=== PATIENT | female | born 1950 | race Caucasian/White ===

== ENCOUNTER 2023-06-18 06:11 | Day surgery (SDC) | payer OTHER, SELFPAY ==
--- NOTE | 2023-05-15 10:20 | CM ---
Patient is scheduled for an elective R TSA on 06/18/23- she is a same day patient. Spoke with patient prior to surgery. Introduced role of Orthopedic Navigator. Patient reports that she lives with her and 94 year old mother in a one story
home. Currently she functions independently. She does not use any DME and has never had VN services. PCP is Dr. Cammie Salazar.
Discussed orthopedic program and post surgical plans. Patient will return home when directed by surgeon. Reviewed MD follow up and transition to outpatient therapy. Patient is in agreement with tentative plan and states that her will be home
with her and can assist if needed.
Patient will complete online education.
Plan: Orthopedic Navigator will be involved in the care of patient after surgery and will reassess discharge needs at that time.
[2023-06-02 13:26] VITALS: BMI 43.8
[2023-06-02 13:47] LABS: Hematocrit 41.2 % (37.0-47.0); Hemoglobin 13.3 g/dL (12.0-16.0); Mean Corp Hgb Conc. 32.3 g/dL (33.0-37.0); Mean Corpuscular Hgb 28.5 pg (27.0-31.0); Mean Corpuscular Volume 88.4 fL (81.0-99.0); Mean Platelet Volume 10.4 fL (7.4-10.4); Platelet Count 247 10^3/uL (130-400); Red Blood Cell Count 4.66 10^6/uL (4.20-5.40); Red Cell Dist. Width 15.4 % (11.5-14.5); White Blood Cell Count 9.2 10^3/uL (4.8-10.8)
[2023-06-02 14:05] LABS: ALT (SGPT) 33 U/L (0-35); AST (SGOT) 41 U/L (14-36); Albumin 4.4 g/dl (3.5-5.0); Alkaline Phosphatase 108 U/L (38-126); Blood Urea Nitrogen 16 mg/dl (7-17); Calcium 9.7 mg/dl (8.4-10.2); Carbon Dioxide 28 mmol/L (22-30); Chloride 105 mmol/L (98-107); Estimated Creatinine Clearance 74 ml/min; Glucose 80 mg/dl (70-99); Potassium 4.6 mmol/L (3.5-5.1); Sodium 136 mmol/L (135-145); Total Bilirubin 0.8 mg/dl (0.2-1.3); eGFR > 60.00
[2023-06-02 14:55] LABS: Glycohemoglobin (HgbA1c) 5.7 % (4.0-5.6)
[2023-06-11 11:00] VITALS: BMI 43.8
[2023-06-18] VITALS (9 sets, daily range): BP systolic 107–132; BP diastolic 55–89
[2023-06-18] MEDS: NORMOSOL-R 1000 IV (09:27)
[2023-06-18] MEDS: CELEBREX 200 MG PO (09:27)
[2023-06-18] MEDS: TYLENOL 1000 MG PO (09:27)
== END 2023-06-18 15:00 | disposition home or self-care (01) ==
LOC: SDS 06:11
PROVIDERS: ATTENDING PHYSICIAN Orthopaedic Surgery Hand Surgery; FAMILY PHYSICIAN Family Medicine; OTHER PHYSICIAN Internal Medicine Cardiovascular Disease
DX: M19.011 Primary osteoarthritis, right shoulder (principal); M75.111 Incomplete rotator cuff tear or rupture of right shoulder, not specified as traumatic; E66.01 Morbid (severe) obesity due to excess calories; Z68.41 Body mass index [BMI] 40.0-44.9, adult; I48.0 Paroxysmal atrial fibrillation; Z79.01 Long term (current) use of anticoagulants
CPT/HCPCS: 23472; 36415; 73020; 80053; 83036; 85027; 87070; C1713; C1776

== ENCOUNTER 2023-10-28 11:28 | Emergency (ER) | payer OTHER, SELFPAY ==
[2023-10-28 11:36] VITALS: BP 156/93
--- NOTE | 2023-10-28 12:51 | ED.GENMED ---
History of Present Illness
General
Chief Complaint: Musculo-Skeletal Complaint
Time Seen by Provider: 10/28/23 12:07
History of Present Illness
History of Present Illness:
73 yo female presents emergency department for evaluation of intermittent right leg pain that comes and goes over the past 7 days. Primarily located in the right popliteal space but does radiate toward the right thigh and right calf. No obvious
provoking or palliating factors. Denies any leg edema. She is on anticoagulants and has been compliant. Denies any low back pain
Past History
Past History
ED Past Medical History: Arrthythmia (afib on Eliquis), CVA (TIA October, April), HTN, Hypercholesterolemia, Hypothyroidism and Other (OA, Cellulitis, obesity, left eustachian tube dysfunction); Negative Asthma or NIDDM
ED Past Surgical History: Gynecological (Uterine biopsy) and Orthopedic (Plates and pins in left knee)
Social History
Tobacco: Non-smoker
Alcohol: Daily (wine or gin with club soda 1 daily)
Drug: None
Personal:
Living: with family
Employment: Employed (Homemaker)
Family History
Family History: Other (Mother with a stroke)
Review of Systems
Review of Systems
Allergies reviewed?: Yes
All Other Systems: ROS reviewed and negative except as documented in HPI and ROS
Phy Exam
Physical Exam
Physical Exam:
GEN: Well appearing, NAD, WDWN
HEENT: Oral mucosa moist, no scleral icterus
Cardiac: Regular rate
Lung: No respiratory distress, no tachypnea
MSK: No gross deformity or injuries. No obvious edema to RLE. DP pulse 2+, normal cap refill. Normal R hip/knee ROM, no pain elicited
Skin: Good color, no pallor or jaundice, no rashes
Neuro: AO x3, moves all extremities freely
Psych: Calm, cooperative
Course
Orders/Labs/Results
Orders:
Orders
10/28/23 12:37
CR Knee- Right 4 Or More View* Urgent
Comment:
Reason For Exam: non traumatic pain
Vital Signs
Initial and Last Documented VS:
Initial Vital Signs
Temp Pulse Resp BP Pulse Ox
97.9 F 68 20 156/93 98
10/28/23 11:36 10/28/23 11:36 10/28/23 11:36 10/28/23 11:36 10/28/23 11:36
Last Documented Vital Signs
Temp Pulse Resp BP Pulse Ox
97.9 F 68 20 156/93 98
10/28/23 11:36 10/28/23 11:36 10/28/23 11:36 10/28/23 11:36 10/28/23 11:36
MDM/Problems Addressed
MDM/Problems Addressed:
Unclear etiology to symptoms, could be knee arthritis or lumbar radiculopathy, doubt DVT given use of OAC. Has Ortho f/u in 2 days
*Critical Care Note
Total Time (30-74mins, 75-104mins- exclusive of procedures): Not Applicable
ED Attending Note
-
Portions of this chart may have been created with voice recognition software.� Occasional wrong word or��sound alike� substitutions may have occurred due to the inherent limitations of voice recognition software.
Discharge Plan
Departure
Patient Disposition: Home (Routine Discharge)
Date of Disposition: 10/28/23
Time of Disposition: 13:55
Patient with high blood pressure during this ER visit?: No
Discharge Problem:
Pain in right leg
Instructions: Osteoarthritis
Prescriptions:
New
methylprednisolone [Medrol (Alexis)] 4 mg tablets,dose pack
See Rx Instructions .ROUTE .COMPLEX Qty: 21 0RF
Rx Instructions:
orally per package directions
No Action
methylsulfonylmethane [MSM] 1,000 MG capsule
1,000 mg PO DAILY
Hold Instructions: Resume on 06/25/23.
cholecalciferol (vitamin D3) 1,000 UNITS tablet
1,000 units PO DAILY
cyanocobalamin (vitamin B-12) 1,000 MCG tablet
5,000 mcg PO DAILY
L.acidoph, paracasei,B. lactis 1 EACH capsule
1 ea PO DAILY
levothyroxine 50 MCG tablet
50 mcg PO DAILY AT 0700
omeprazole 20 MG capsule,delayed release(DR/EC)
20 mg PO DAILY
ascorbic acid (vitamin C) [Vitamin C] 500 MG tablet
1,000 mg PO DAILY
Calcium Carbonate/Mag Carb [Magnebind 400 Tablet] 1 EACH Tablet
2 cap PO DAILY
metoprolol succinate 25 mg Tablet Extended Release 24 Hr
25 mg PO BID
loratadine 10 MG tablet
10 mg PO DAILY
pyridoxine (vitamin B6) [Vitamin B-6] 250 mg Tablet
250 mg PO DAILY
psyllium husk 0.52 gram Capsule
1.04 g PO DAILY
Biocell Collagen
1 cap PO DAILY
Turmeric Curcumin
1 tab PO DAILY
Hold Instructions: Resume on 06/25/23.
multivitamin Tablet
1 tab PO DAILY
atorvastatin 40 mg tablet
40 mg PO QPM
omega-3 fatty acids-fish oil 684-1,200 mg Capsule,Delayed Release(Dr/Ec)
1 cap PO DAILY
Hold Instructions: Resume on 06/25/23.
Eliquis 5 MG tablet
5 mg PO BID
Hold Instructions: Resume on 06/21/23.
Co Q-10
1 dose PO DAILY
Hold Instructions: Resume on 06/25/23.
chromium
200 mg PO DAILY
Hold Instructions: Resume on 06/25/23.
glucosam-chond ly-cklxpa-wl ac
1 dose PO DAILY
Hold Instructions: Resume on 06/25/23.
hydrocodone-acetaminophen 5-325 mg tablet
1 - 2 tab PO Q6H PRN (Reason: moderate-severe pain) Qty: 30 0RF
Rx Instructions:
1 tab for moderate pain, 2 if severe.
Dx total joint
doxycycline monohydrate 100 mg capsule
100 mg PO BID Qty: 7 0RF
Rx Instructions:
Start night of discharge and continue twice a day for 3 days post-surgery.
Take with probiotic.
ondansetron HCl 4 mg tablet
4 mg PO Q6H PRN (Reason: nausea and vomiting) Qty: 30 0RF
mupirocin 2 % ointment
1 applic intranasal BID Qty: 1 0RF
acetaminophen [Tylenol] 325 mg tablet
650 mg PO Q6H PRN (Reason: mild pain) Qty: 60 0RF
Rx Instructions:
DO NOT exceed >3000 mg daily while on [place].
1 [place] tab = 325 mg of Tylenol.
Eliquis 2.5 mg tablet
2.5 mg PO BID Qty: 5 0RF
Rx Instructions:
Cut 5 mg tab in 04/15 (= 2.5 mg) and take twice a day from 3/6 PM to 3/8 PM.
Can resume Eliquis 5 mg twice a day 3/9 AM.
docusate sodium [Colace] 100 mg capsule
100 mg PO BID Qty: 30 0RF
sennosides [senna] 8.6 mg tablet
17.2 mg PO BID Qty: 30 0RF
Referrals:
Prashant Montgomery MD [Active] -
Cammie Salazar MD [Family Provider] -
Activity Restrictions/Additional Instructions:
The cause of your pain is not clear, at this time I suspect either pain due to knee arthritis versus a pinched nerve in the back causing leg pain.
Please follow-up with orthopedics for reevaluation
Interventions
Interventions:
*Risk Screen - Suicide Last Done: 10/28/23 11:36
*General Assessment Last Done: 10/28/23 11:36
*Neglect/Abuse Screening Last Done: 10/28/23 11:36
ED- Fall Risk Assessment Last Done: 10/28/23 14:09
*ED COVID-19 Vaccine History Last Done: 10/28/23 14:09
*Nursing Disposition Last Done: 10/28/23 14:09
ED-Musculoskeletal Assessment Last Done: 10/28/23 13:00
Discharge Date and Time
Discharge Date/Time: 10/28/23 14:05
Print Language: LUXEMBOURGISH
== END 2023-10-28 14:05 | disposition home or self-care (01) ==
LOC: EMR 11:28
PROVIDERS: EMERGENCY PHYSICIAN Emergency Medicine; FAMILY PHYSICIAN Family Medicine
DX: M79.604 Pain in right leg (principal); I48.91 Unspecified atrial fibrillation; I10 Essential (primary) hypertension; E78.00 Pure hypercholesterolemia, unspecified; E03.9 Hypothyroidism, unspecified; E66.9 Obesity, unspecified; Z79.01 Long term (current) use of anticoagulants; Z82.3 Family history of stroke; Z86.73 Personal history of transient ischemic attack (TIA), and cerebral infarction without residual deficits
CPT/HCPCS: 99283; 73564

== ENCOUNTER → 2023-11-14 11:57 | Outpatient (REF) | payer OTHER, SELFPAY | LOC: PAVMRI 11:57 | PROVIDERS: ATTENDING PHYSICIAN Orthopaedic Surgery; FAMILY PHYSICIAN Family Medicine | DX: M54.50 Low back pain, unspecified (principal) | CPT/HCPCS: 72148 ==

== ENCOUNTER → 2024-02-23 10:57 | Outpatient (REF) | payer OTHER, SELFPAY | LOC: WDC 10:57 | PROVIDERS: ATTENDING PHYSICIAN Obstetrics & Gynecology; FAMILY PHYSICIAN Family Medicine | DX: Z12.31 Encounter for screening mammogram for malignant neoplasm of breast (principal) | CPT/HCPCS: 77063; 77067 ==

== ENCOUNTER 2024-06-23 12:05 | Emergency (ER) | payer OTHER, SELFPAY ==
[2024-06-23 12:07] VITALS: BP 188/99
--- NOTE | 2024-06-23 13:28 | ED.GENMED ---
History of Present Illness
General
Chief Complaint: Nose Bleed
Source: patient and spouse
Exam Limitations: none
Time Seen by Provider: 06/23/24 12:40
Nursing documentation reviewed up to this point in time: agreed with
History of Present Illness
History of Present Illness:
73-year-old female with history as noted significant for A-fib on Eliquis presents to the ER for evaluation of epistaxis. Patient reports symptoms started around 9:30 AM and lasted for about 2+ hours. Fortunately bleeding has resolved. She was
bleeding primarily out of the right nare. She held pressure and applied ice but did not have initial success; after about 2 hours of trial bleeding had abated while she was on her way to the ER. She denies any trauma. She denies any other
complaints. She feels well here in the ER.
Past History
Past History
ED Past Medical History: Arrthythmia (afib on Eliquis), CVA (TIA October, April), HTN, Hypercholesterolemia, Hypothyroidism and Other (OA, Cellulitis, obesity, left eustachian tube dysfunction); Negative Asthma or NIDDM
ED Past Surgical History: Gynecological (Uterine biopsy) and Orthopedic (Plates and pins in left knee)
Social History
Tobacco: Non-smoker
Alcohol: Daily (wine or gin with club soda 1 daily)
Drug: None
Personal:
Living: with family
Employment: Employed (Homemaker)
Family History
Family History: Other (Mother with a stroke)
Review of Systems
Review of Systems
All Other Systems: ROS reviewed and negative except as documented in HPI and ROS
EENT: Reports other (Epistaxis)
Phy Exam
Physical Exam
Physical Exam:
General: Well appearing and non-toxic
HEENT: protecting airway, no blood noted in the posterior oropharynx; patient has some dried blood on the right nasal septum no active bleeding; left nare clear
Neck: appears supple
CV: No evidence of cyanosis
Resp: No accessory muscle use
Abd: Non-distended
Extremities: No deformities
Neuro: Alert
Psych: Normal affect
Skin: Intact
Scores
Heart Failure Risk
Heart Failure Risk Score: Not Applicable
Heart Score for Chest Pain Patients
STEMI patient?: Not applicable
Withdrawal Assessment of Alcohol
Withdrawal Assessment Completed?: Not applicable
Course
Vital Signs
Initial and Last Documented VS:
Initial Vital Signs
Temp Pulse Resp BP Pulse Ox
36.5 C 70 18 188/99 99
06/23/24 12:07 06/23/24 12:07 06/23/24 12:07 06/23/24 12:07 06/23/24 12:07
Last Documented Vital Signs
Temp Pulse Resp BP Pulse Ox
36.5 C 70 18 188/99 99
06/23/24 12:07 06/23/24 12:07 06/23/24 12:07 06/23/24 12:07 06/23/24 12:07
MDM/Problems Addressed
Differential Diagnosis Includes:
Epistaxis
MDM/Problems Addressed:
73-year-old female presents for evaluation after episode of epistaxis; she is on Eliquis. Fortunately bleeding has resolved. She has been here in the emergency room for 90 minutes has not had recurrence of bleeding. Stable for discharge. We
spoke about measures to take should bleeding recur and return precautions. All questions answered.
Chronic conditions affecting care:
A-fib on Eliquis complicates epistaxis
Acute Exacerbation and/or Progression of Chronic Illness:
Hypertensive
Acute Exacerbation and/or Progression of Chronic Illness: HTN
*Pulse Oximetry
Patient hypoxic: no
*Critical Care Note
Total Time (30-74mins, 75-104mins- exclusive of procedures): Not Applicable
Data Reviewed
Source: patient and spouse
ED Attending Note
-
Portions of this chart may have been created with voice recognition software.� Occasional wrong word or��sound alike� substitutions may have occurred due to the inherent limitations of voice recognition software.
Discharge Plan
Departure
Patient Disposition: Home (Routine Discharge)
Date of Disposition: 06/23/24
Time of Disposition: 13:27
Patient with high blood pressure during this ER visit?: Yes
Discharge Problem:
Acute anterior epistaxis, Hypertension
Instructions: Nosebleeds (DC), BLOOD PRESSURE
Prescriptions:
No Action
methylsulfonylmethane [MSM] 1,000 MG capsule
1,000 mg PO DAILY
cholecalciferol (vitamin D3) 1,000 UNITS tablet
1,000 units PO DAILY
cyanocobalamin (vitamin B-12) 1,000 MCG tablet
5,000 mcg PO DAILY
L.acidoph,paracasei,B.animalis 1 EACH capsule
1 ea PO DAILY
levothyroxine 50 MCG tablet
50 mcg PO DAILY AT 0700
omeprazole 20 MG capsule,delayed release(DR/EC)
20 mg PO DAILY
ascorbic acid (vitamin C) [Vitamin C] 500 MG tablet
1,000 mg PO DAILY
Calcium Carbonate/Mag Carb [Magnebind 400 Tablet] 1 EACH Tablet
2 cap PO DAILY
metoprolol succinate 25 mg Tablet Extended Release 24 Hr
25 mg PO BID
loratadine 10 MG tablet
10 mg PO DAILY
pyridoxine (vitamin B6) [Vitamin B-6] 250 mg Tablet
250 mg PO DAILY
psyllium husk 0.52 gram Capsule
1.04 g PO DAILY
Biocell Collagen
1 cap PO DAILY
Turmeric Curcumin
1 tab PO DAILY
multivitamin Tablet
1 tab PO DAILY
atorvastatin 40 mg tablet
40 mg PO QPM
omega-3 fatty acids-fish oil 684-1,200 mg Capsule,Delayed Release(Dr/Ec)
1 cap PO DAILY
Eliquis 5 MG tablet
5 mg PO BID
Co Q-10
1 dose PO DAILY
chromium
200 mg PO DAILY
glucosam-chond ca-jaxusb-pb ac
1 dose PO DAILY
hydrocodone-acetaminophen 5-325 mg tablet
1 - 2 tab PO Q6H PRN (Reason: moderate-severe pain) Qty: 30 0RF
Rx Instructions:
1 tab for moderate pain, 2 if severe.
Dx total joint
doxycycline monohydrate 100 mg capsule
100 mg PO BID Qty: 7 0RF
Rx Instructions:
Start night of discharge and continue twice a day for 3 days post-surgery.
Take with probiotic.
ondansetron HCl 4 mg tablet
4 mg PO Q6H PRN (Reason: nausea and vomiting) Qty: 30 0RF
mupirocin 2 % ointment
1 applic intranasal BID Qty: 1 0RF
acetaminophen [Tylenol] 325 mg tablet
650 mg PO Q6H PRN (Reason: mild pain) Qty: 60 0RF
Rx Instructions:
DO NOT exceed >3000 mg daily while on [place].
1 [place] tab = 325 mg of Tylenol.
Eliquis 2.5 mg tablet
2.5 mg PO BID Qty: 5 0RF
Rx Instructions:
Cut 5 mg tab in 04/15 (= 2.5 mg) and take twice a day from 3/6 PM to 3/8 PM.
Can resume Eliquis 5 mg twice a day 3/9 AM.
docusate sodium [Colace] 100 mg capsule
100 mg PO BID Qty: 30 0RF
sennosides [senna] 8.6 mg tablet
17.2 mg PO BID Qty: 30 0RF
methylprednisolone [Medrol (Alexis)] 4 mg tablets,dose pack
See Rx Instructions .ROUTE .COMPLEX Qty: 21 0RF
Rx Instructions:
orally per package directions
Referrals:
Cammie Salazar MD [Family Provider] -
Doug Fuentes MD [Active] - As needed (ENT--as needed for recurrent nosebleeds)
Activity Restrictions/Additional Instructions:
Thank you for visiting the Emergency Department at [facility].
1. Please schedule a follow up appointment as directed. Call first thing tomorrow morning to make an appointment.
2. If indicated, please take your medications as instructed and indicated on discharge paperwork.
3. If any of your symptoms do not improve, or persist, or become more severe within 6-12 hours, please return to the emergency department for further care.
4. Please return to the emergency department if you develop a headache, neck pain/stiffness, fever greater than 100.4F, chest pain, shortness of breath, persistent nausea, vomiting, slurred speech, difficulty walking, numbness/tingling, weakness,
signs of infection or any other symptoms that are worrisome to you.
Please call [phone] if you have any questions.
Interventions
Interventions:
*Risk Screen - Suicide Last Done: 06/23/24 12:07
*Neglect/Abuse Screening Last Done: 06/23/24 12:07
Discharge Date and Time
Print Language: MAURITANIAN
[2024-06-23 13:38] VITALS: BP 120/62
== END 2024-06-23 13:40 | disposition home or self-care (01) ==
LOC: EMR 12:05
PROVIDERS: EMERGENCY PHYSICIAN Emergency Medicine; FAMILY PHYSICIAN Family Medicine
DX: R04.0 Epistaxis (principal); I10 Essential (primary) hypertension; I48.91 Unspecified atrial fibrillation; E03.9 Hypothyroidism, unspecified; E66.9 Obesity, unspecified; E78.00 Pure hypercholesterolemia, unspecified; Z79.01 Long term (current) use of anticoagulants; Z82.3 Family history of stroke; Z86.73 Personal history of transient ischemic attack (TIA), and cerebral infarction without residual deficits
CPT/HCPCS: 99282

== ENCOUNTER 2024-07-15 15:39 | Emergency (ER) | payer OTHER, SELFPAY ==
[2024-07-15 15:47] VITALS: BP 176/83
--- NOTE | 2024-07-15 18:22 | ED.GENMED ---
History of Present Illness
General
Chief Complaint: Nose Bleed
Source: patient
Exam Limitations: none
Time Seen by Provider: 07/15/24 18:05
History of Present Illness
History of Present Illness:
73-year-old female on Eliquis presents with nosebleed from the right side that started today. She had difficulty getting it to stop bleeding at home for about 3 hours. No known injury. She was here couple weeks ago but the bleeding stopped on its
own at that time. She has been using a clamp.
Past History
Past History
ED Past Medical History: Arrthythmia (afib on Eliquis), CVA (TIA October, April), HTN, Hypercholesterolemia, Hypothyroidism and Other (OA, Cellulitis, obesity, left eustachian tube dysfunction); Negative Asthma or NIDDM
ED Past Surgical History: Gynecological (Uterine biopsy) and Orthopedic (Plates and pins in left knee)
Social History
Tobacco: Non-smoker
Alcohol: Daily (wine or gin with club soda 1 daily)
Drug: None
Personal:
Living: with family
Employment: Employed (Homemaker)
Family History
Family History: Other (Mother with a stroke)
Phy Exam
Physical Exam
Physical Exam:
General: Well-appearing female no acute respiratory distress
HEENT: Normocephalic right nasal cavity with a site of bleeding anteriorly. This seems to have stopped during my exam there is a small clot over the area. Posterior aspect of the nose shows no obvious bleeding left side is patent without blood
posterior pharynx is without
blood
Course
Vital Signs
Initial and Last Documented VS:
Initial Vital Signs
Temp Pulse Resp Pulse Ox
98.1 F 61 18 99
07/15/24 15:43 07/15/24 15:43 07/15/24 15:43 07/15/24 15:43
Last Documented Vital Signs
Temp Pulse Resp BP Pulse Ox
98.1 F 61 18 176/83 99
07/15/24 15:43 07/15/24 15:43 07/15/24 15:43 07/15/24 15:47 07/15/24 15:43
MDM/Problems Addressed
Differential Diagnosis Includes:
Acute anterior epistaxis. Not currently bleeding on my exam discussion was had with treatment options. Piece of cotton soaked with lidocaine and epinephrine were placed into the right side of the nose. Will attempt to cauterize
Update Note
Update Note:
Cotton was removed, there was further bleeding from the anterior site. This was cauterized with silver nitrate and the bleeding continued slightly. Surgicel was placed on the anterior medial aspect of the right side of the nose and the clamp was
reapplied. Will reevaluate
After the clamp was applied and removed there was no further bleeding. Recommend follow-up with ENT
ED Attending Note
-
Portions of this chart may have been created with voice recognition software.� Occasional wrong word or��sound alike� substitutions may have occurred due to the inherent limitations of voice recognition software.
Discharge Plan
Departure
Patient Disposition: Home (Routine Discharge)
Date of Disposition: 07/15/24
Time of Disposition: 19:38
Patient with high blood pressure during this ER visit?: No
Discharge Problem:
Acute anterior epistaxis
Instructions: Nosebleeds (DC)
Prescriptions:
No Action
methylsulfonylmethane [MSM] 1,000 MG capsule
1,000 mg PO DAILY
cholecalciferol (vitamin D3) 1,000 UNITS tablet
1,000 units PO DAILY
cyanocobalamin (vitamin B-12) 1,000 MCG tablet
5,000 mcg PO DAILY
L.acidoph,bernardinoi,B.animalis 1 EACH capsule
1 ea PO DAILY
levothyroxine 50 MCG tablet
50 mcg PO DAILY AT 0700
omeprazole 20 MG capsule,delayed release(DR/EC)
20 mg PO DAILY
ascorbic acid (vitamin C) [Vitamin C] 500 MG tablet
1,000 mg PO DAILY
Calcium Carbonate/Mag Carb [Magnebind 400 Tablet] 1 EACH Tablet
2 cap PO DAILY
metoprolol succinate 25 mg Tablet Extended Release 24 Hr
25 mg PO BID
loratadine 10 MG tablet
10 mg PO DAILY
pyridoxine (vitamin B6) [Vitamin B-6] 250 mg Tablet
250 mg PO DAILY
psyllium husk 0.52 gram Capsule
1.04 g PO DAILY
Biocell Collagen
1 cap PO DAILY
Turmeric Curcumin
1 tab PO DAILY
multivitamin Tablet
1 tab PO DAILY
atorvastatin 40 mg tablet
40 mg PO QPM
omega-3 fatty acids-fish oil 684-1,200 mg Capsule,Delayed Release(Dr/Ec)
1 cap PO DAILY
Eliquis 5 MG tablet
5 mg PO BID
Co Q-10
1 dose PO DAILY
chromium
200 mg PO DAILY
glucosam-chond lp-quaodj-ns ac
1 dose PO DAILY
hydrocodone-acetaminophen 5-325 mg tablet
1 - 2 tab PO Q6H PRN (Reason: moderate-severe pain) Qty: 30 0RF
Rx Instructions:
1 tab for moderate pain, 2 if severe.
Dx total joint
doxycycline monohydrate 100 mg capsule
100 mg PO BID Qty: 7 0RF
Rx Instructions:
Start night of discharge and continue twice a day for 3 days post-surgery.
Take with probiotic.
ondansetron HCl 4 mg tablet
4 mg PO Q6H PRN (Reason: nausea and vomiting) Qty: 30 0RF
mupirocin 2 % ointment
1 applic intranasal BID Qty: 1 0RF
acetaminophen [Tylenol] 325 mg tablet
650 mg PO Q6H PRN (Reason: mild pain) Qty: 60 0RF
Rx Instructions:
DO NOT exceed >3000 mg daily while on [place].
1 [place] tab = 325 mg of Tylenol.
Eliquis 2.5 mg tablet
2.5 mg PO BID Qty: 5 0RF
Rx Instructions:
Cut 5 mg tab in 04/15 (= 2.5 mg) and take twice a day from 3/6 PM to 3/8 PM.
Can resume Eliquis 5 mg twice a day 3/9 AM.
docusate sodium [Colace] 100 mg capsule
100 mg PO BID Qty: 30 0RF
sennosides [senna] 8.6 mg tablet
17.2 mg PO BID Qty: 30 0RF
methylprednisolone [Medrol (Alexis)] 4 mg tablets,dose pack
See Rx Instructions .ROUTE .COMPLEX Qty: 21 0RF
Rx Instructions:
orally per package directions
Referrals:
Cammie Salazar MD [Family Provider] -
Activity Restrictions/Additional Instructions:
Please follow-up with ENT for next available appointment. There is a piece of gauze in your nose that may fall out on its own.
Interventions
Interventions:
*Risk Screen - Suicide Last Done: 07/15/24 15:43
*General Assessment Last Done: 07/15/24 15:43
*Neglect/Abuse Screening Last Done: 07/15/24 15:43
*ED COVID-19 Vaccine History Last Done: 07/15/24 15:43
ED-EENT Assessment Last Done: 07/15/24 16:13
Discharge Date and Time
Print Language: SERBIAN
== END 2024-07-15 19:46 | disposition home or self-care (01) ==
LOC: EMR 15:39
PROVIDERS: EMERGENCY PHYSICIAN Student in an Organized Health Care Education/Training Program; FAMILY PHYSICIAN Family Medicine
DX: R04.0 Epistaxis (principal); Z79.01 Long term (current) use of anticoagulants; I10 Essential (primary) hypertension
CPT/HCPCS: 99282; 30901

== ENCOUNTER 2024-10-02 12:35 | Emergency (ER) | payer OTHER, SELFPAY ==
[2024-10-02 12:44] VITALS: BP 127/59
--- NOTE | 2024-10-02 14:03 | ED.GENMED ---
History of Present Illness
General
Chief Complaint: Musculo-Skeletal Complaint
Source: patient
Time Seen by Provider: 10/02/24 13:28
History of Present Illness
History of Present Illness:
74-year-old female with past medical history of atrial fibrillation, CHF, hypertension, hyperlipidemia, previous TIA, hypothyroidism presenting the ER for evaluation after she was attempting to put a nasal spray into her nose last night and twisted
her right elbow, heard a cracking sensation and diminished range of motion and increased pain today prompting her to come to the ER with concern for possible fracture. Patient states that the pain to her right elbow has been an ongoing issue and
has seen Dr. Claire from orthopedics in the past and reports that she was given a steroid not too long ago and was supposed to start physical therapy next week. No other injuries or concerns at this time. Denies any focal weakness or numbness.
Past History
Past History
ED Past Medical History: Arrthythmia (afib on Eliquis), CVA (TIA October, April), HTN, Hypercholesterolemia, Hypothyroidism and Other (OA, Cellulitis, obesity, left eustachian tube dysfunction); Negative Asthma or NIDDM
ED Past Surgical History: Gynecological (Uterine biopsy) and Orthopedic (Plates and pins in left knee)
Social History
Tobacco: Non-smoker
Alcohol: Daily (wine or gin with club soda 1 daily)
Drug: None
Personal:
Living: with family
Employment: Employed (Homemaker)
Family History
Family History: Other (Mother with a stroke)
Review of Systems
Review of Systems
All Other Systems: ROS reviewed and negative except as documented in HPI and ROS
Phy Exam
Physical Exam
Physical Exam:
GENERAL: Alert , in no apparent distress
EYE: conjunctiva clear
Head: Normocephalic atraumatic
NECK: Supple,
ENT: mmm.
LUNGS: no acute respiratory distress
NEUROLOGICAL: Alert and oriented
SKIN: Warm and dry, skin intact.
MUSCULOSKELETAL: Right Upper Extremity: No obvious deformity, erythema, edema, ecchymosis, abrasions or lacerations. Generally tender over the olecranon and epicondyles. Range of motion significantly limited with flexion and extension as well as
pronation and supination secondary to pain. Extremity is otherwise warm and well-perfused.
PSYCH: Normal and appropriate interaction.
Scores
Heart Failure Risk
Heart Failure Risk Score: Not Applicable
Heart Score for Chest Pain Patients
STEMI patient?: Not applicable
Withdrawal Assessment of Alcohol
Withdrawal Assessment Completed?: Not applicable
Course
Orders/Labs/Results
Orders:
Orders
10/02/24 12:47
Elbow, Right 3 View [CR Elbow - Right Min 3 Views] Urgent
Comment:
Reason For Exam: injury
Vital Signs
Initial and Last Documented VS:
Initial Vital Signs
Temp Pulse Resp BP Pulse Ox
98 F 70 16 127/59 99
10/02/24 12:44 10/02/24 12:44 10/02/24 12:44 10/02/24 12:44 10/02/24 12:44
Last Documented Vital Signs
Temp Pulse Resp BP Pulse Ox
98 F 70 16 127/59 99
10/02/24 12:44 10/02/24 12:44 10/02/24 12:44 10/02/24 12:44 10/02/24 14:04
MDM/Problems Addressed
Differential Diagnosis Includes:
Tendinitis
Osteoarthritis
Ligamentous injury
Sprain
Fracture
No concern for infectious etiology
MDM/Problems Addressed:
74-year-old female presenting to the ER for evaluation after injuring her right elbow last night, no direct injury to the affected area. She does have known history of complications to this elbow and has seen orthopedics in the past for it. X-ray
performed shows no acute fracture but there is significant osteoarthritis noted. Patient has a sling at home. Advise she contact her orthopedic provider on Friday. Aware of return precautions to the ER.
*Radiology
Radiology exam reviewed: preliminary read by ED provider (osteoarthritis, no fracture)
*Pulse Oximetry
SaO2: 99
Oxygen Mode of Delivery: Room air
Patient hypoxic: no
*Critical Care Note
Total Time (30-74mins, 75-104mins- exclusive of procedures): Not Applicable
ED Attending Note
-
Portions of this chart may have been created with voice recognition software.� Occasional wrong word or��sound alike� substitutions may have occurred due to the inherent limitations of voice recognition software.
Discharge Plan
Departure
Patient Disposition: Home (Routine Discharge)
Date of Disposition: 10/02/24
Time of Disposition: 14:03
Patient with high blood pressure during this ER visit?: No
Discharge Problem:
Elbow pain, right
Instructions: Elbow Sprain (DC)
Prescriptions:
No Action
methylsulfonylmethane [MSM] 1,000 MG capsule
1,000 mg PO DAILY
cholecalciferol (vitamin D3) 1,000 UNITS tablet
1,000 units PO DAILY
cyanocobalamin (vitamin B-12) 1,000 MCG tablet
5,000 mcg PO DAILY
L.acidoph,paracasei,B.animalis 1 EACH capsule
1 ea PO DAILY
levothyroxine 50 MCG tablet
50 mcg PO DAILY AT 0700
omeprazole 20 MG capsule,delayed release(DR/EC)
20 mg PO DAILY
ascorbic acid (vitamin C) [Vitamin C] 500 MG tablet
1,000 mg PO DAILY
Calcium Carbonate/Mag Carb [Magnebind 400 Tablet] 1 EACH Tablet
2 cap PO DAILY
metoprolol succinate 25 mg Tablet Extended Release 24 Hr
25 mg PO BID
loratadine 10 MG tablet
10 mg PO DAILY
pyridoxine (vitamin B6) [Vitamin B-6] 250 mg Tablet
250 mg PO DAILY
psyllium husk 0.52 gram Capsule
1.04 g PO DAILY
Biocell Collagen
1 cap PO DAILY
Turmeric Curcumin
1 tab PO DAILY
multivitamin Tablet
1 tab PO DAILY
atorvastatin 40 mg tablet
40 mg PO QPM
omega-3 fatty acids-fish oil 684-1,200 mg Capsule,Delayed Release(Dr/Ec)
1 cap PO DAILY
Eliquis 5 MG tablet
5 mg PO BID
Co Q-10
1 dose PO DAILY
chromium
200 mg PO DAILY
glucosam-chond yu-vrwtzk-gh ac
1 dose PO DAILY
hydrocodone-acetaminophen 5-325 mg tablet
1 - 2 tab PO Q6H PRN (Reason: moderate-severe pain) Qty: 30 0RF
Rx Instructions:
1 tab for moderate pain, 2 if severe.
Dx total joint
doxycycline monohydrate 100 mg capsule
100 mg PO BID Qty: 7 0RF
Rx Instructions:
Start night of discharge and continue twice a day for 3 days post-surgery.
Take with probiotic.
ondansetron HCl 4 mg tablet
4 mg PO Q6H PRN (Reason: nausea and vomiting) Qty: 30 0RF
mupirocin 2 % ointment
1 applic intranasal BID Qty: 1 0RF
acetaminophen [Tylenol] 325 mg tablet
650 mg PO Q6H PRN (Reason: mild pain) Qty: 60 0RF
Rx Instructions:
DO NOT exceed >3000 mg daily while on Ashley.
1 Ashley tab = 325 mg of Tylenol.
Eliquis 2.5 mg tablet
2.5 mg PO BID Qty: 5 0RF
Rx Instructions:
Cut 5 mg tab in 04/15 (= 2.5 mg) and take twice a day from 3/6 PM to 3/8 PM.
Can resume Eliquis 5 mg twice a day 3/9 AM.
docusate sodium [Colace] 100 mg capsule
100 mg PO BID Qty: 30 0RF
sennosides [senna] 8.6 mg tablet
17.2 mg PO BID Qty: 30 0RF
methylprednisolone [Medrol (Alexis)] 4 mg tablets,dose pack
See Rx Instructions .ROUTE .COMPLEX Qty: 21 0RF
Rx Instructions:
orally per package directions
Referrals:
Cammie Salazar MD [Family Provider, Family Practice]
Interventions
Interventions:
*Risk Screen - Suicide Last Done: 10/02/24 12:44
*General Assessment Last Done: 10/02/24 12:56
*Neglect/Abuse Screening Last Done: 10/02/24 12:44
*ED- Fall Risk Assessment Last Done: 10/02/24 12:56
*ED COVID-19 Vaccine History Last Done: 10/02/24 12:56
*Nursing Disposition Last Done: 10/02/24 14:09
ED-Musculoskeletal Assessment Last Done: 10/02/24 12:56
Discharge Date and Time
Discharge Date/Time: 10/02/24 14:09
Print Language: [id number]
== END 2024-10-02 14:09 | disposition home or self-care (01) ==
LOC: EMR 12:35
PROVIDERS: EMERGENCY PHYSICIAN Emergency Medicine; FAMILY PHYSICIAN Family Medicine
DX: M25.521 Pain in right elbow (principal); E03.9 Hypothyroidism, unspecified; E78.00 Pure hypercholesterolemia, unspecified; I11.0 Hypertensive heart disease with heart failure; I50.9 Heart failure, unspecified; I48.91 Unspecified atrial fibrillation; Z79.01 Long term (current) use of anticoagulants; Z86.73 Personal history of transient ischemic attack (TIA), and cerebral infarction without residual deficits
CPT/HCPCS: 99283; 73080

== ENCOUNTER → 2025-02-24 11:53 | Outpatient (REF) | payer OTHER, SELFPAY | LOC: WDC 11:53 | PROVIDERS: ATTENDING PHYSICIAN Obstetrics & Gynecology; FAMILY PHYSICIAN Family Medicine | DX: Z12.31 Encounter for screening mammogram for malignant neoplasm of breast (principal) | CPT/HCPCS: 77063; 77067 ==